=== PATIENT | female | born 1950 | race Caucasian/White ===

== ENCOUNTER → 2017-10-01 | Outpatient (CLI) | payer MEDICARE | LOC: CFH 13:51 | PROVIDERS: ATTEND Orthopaedic Surgery | DX: M75.102 Unspecified rotator cuff tear or rupture of left shoulder, not specified as traumatic (principal); M54.12 Radiculopathy, cervical region ==

== ENCOUNTER → 2017-10-18 | Outpatient (CLI) | payer MEDICARE | END | disposition home or self-care (01) | LOC: CFH 15:41 | PROVIDERS: ATTEND Orthopaedic Surgery | DX: M43.02 Spondylolysis, cervical region (principal); M48.02 Spinal stenosis, cervical region | CPT/HCPCS: 72141 ==